=== PATIENT | male | born 1990 | race Two or more races ===

== ENCOUNTER 2021-07-10 06:38 | Day surgery (SDC) | payer OTHER | END 2021-07-10 13:25 | disposition home or self-care (01) | LOC: AMB-ENDOS 06:38 | PROVIDERS: ATTEND Colon & Rectal Surgery | DX: K62.89 Other specified diseases of anus and rectum (principal); K64.2 Third degree hemorrhoids; Z20.822 Contact with and (suspected) exposure to COVID-19 ==